=== PATIENT | female | born 1995 | race Two or more races ===

== ENCOUNTER 2022-01-15 18:12 | Emergency (ER) | payer OTHER ==
[~2022-01-15] VITALS: Ht 149.9 cm; Wt 39.0 kg
[2022-01-15] MEDS ORDERED: AMETHYST1 EACH PO (18:20)
[2022-01-15] MEDS ORDERED: ESTAZOLAM1 MG PO (18:20)
== END 2022-01-15 20:20 | disposition home or self-care (01) ==
LOC: ER 18:12
DX: A60.00 Herpesviral infection of urogenital system, unspecified (principal); Z91.011 Allergy to milk products